=== PATIENT | female | born 1995 | race Two or more races ===

== ENCOUNTER 2017-11-06 10:51 | Emergency (ER) | payer MEDICAID ==
[~2017-11-06] VITALS: Ht 172.7 cm; Wt 65.5 kg
[~2017-11-06 10:51] MED LIST: CITA10TA8 PO
[2017-11-06] MEDS ORDERED: SODIUM CHLORIDE 0.9% 1,000 ML IV ONE (11:37)
[2017-11-06 11:57] LABS: BASOPHILS # (AUTO) 0.01 x10^3/uL (0-0.3); BASOPHILS % (AUTO) 0 % (0-1); EOSINOPHILS % (AUTO) 0 % (1-7); LYMPHOCYTES # (AUTO) 0.72 x10^3/uL (1-6.1); LYMPHOCYTES % (AUTO) 11 % (22-44); MD NO; MEAN CORPUSCULAR HEMOGLOBIN 31.9 pg (27.0-34.8); MEAN CORPUSCULAR VOLUME 93.7 fL (80-100); MEAN PLATELET VOLUME 8.1 fL (7.4-10.4); MONOCYTES # (AUTO) 0.23 x10^3/uL (0-1.4); MONOCYTES % (AUTO) 4 % (2-9); NEUTROPHILS # (AUTO) 5.38 x10^3/uL (1.8-8.0); NEUTROPHILS % (AUTO) 85 % (42-75); PLATELET COUNT 246 x10^3/uL (130-400); RED BLOOD COUNT 4.08 x10^6/uL (3.82-5.3); RED CELL DISTRIBUTION WIDTH 13.1 % (9.6-15.2)
[2017-11-06] MEDS ORDERED: SODIUM CHLORIDE 0.9% 1,000ML IVBOLUS ONE (12:00)
[2017-11-06] MEDS ORDERED: SODIUM CHLORIDE FLUSH 10ML SYR IVF ONE (12:00)
[2017-11-06] MEDS ORDERED: ONDANSETRON 2MG/ML, 2ML IVPush ONE (12:00)
[2017-11-06] MEDS ORDERED: KETOROLAC 30 MG/1 ML IVPush ONE (12:00)
[2017-11-06 12:08] LABS: ALBUMIN 4.7 g/dL (3.4-5.0); ANION GAP 10 mmol/L (5-15); CALCIUM 8.4 mg/dL (8.5-10.1); CHLORIDE 107 mmol/L (98-107)
[2017-11-06] MEDS ORDERED: ONDANSETRON 2MG/ML, 2ML ONE (12:12)
[2017-11-06] MEDS ORDERED: KETOROLAC 30 MG/1 ML ONE ×2 (12:12→14:47)
[2017-11-06 12:14] LABS: ALANINE AMINOTRANSFERASE 17 U/L (12-78); ALKALINE PHOSPHATASE 68 U/L (45-117); BILIRUBIN,TOTAL 0.9 mg/dL (0.2-1.0); CREATININE 0.82 mg/dL (0.55-1.02); TOTAL PROTEIN 7.7 g/dL (6.4-8.2)
[2017-11-06 12:46] LABS: MICROSCOPIC AUTO
[2017-11-06 12:47] LABS: CULTURE INDICATED? NO
[2017-11-06] MEDS ORDERED: MORPHINE SULFATE 4 MG/ML, 1ML ONE (13:06)
[2017-11-06] MEDS ORDERED: PROMETHAZINE 25 MG/ML, 1ML ONE (13:06)
[2017-11-06] MEDS ORDERED: MORPHINE SULFATE 4 MG/ML, 1ML IVPush PRN (13:30)
[2017-11-06] MEDS ORDERED: PROMETHAZINE 25 MG/ML, 1ML IM ONE (13:30)
[2017-11-06 14:26] VITALS: BP 121/70
[2017-11-06] MEDS ORDERED: METHOCARBAMOL 750 MG TABLET ONE (14:47)
== END 2017-11-06 14:41 | disposition home or self-care (01) ==
LOC: ED 13:45
DX: N83.12 Corpus luteum cyst of left ovary (principal)
CPT/HCPCS: 36415; 76830; 80053; 81001; 84703; 85025; 96361; 96372; 96374; 96375; 99285; J1885; J2405; J2550; J7030

== ENCOUNTER 2017-11-07 16:03 | Emergency (ER) | payer MEDICAID ==
[~2017-11-07] VITALS: Ht 170.2 cm; Wt 77.5 kg
[2017-11-07] MEDS ORDERED: FAMOTIDINE 20 MG/2 ML IVP ONE (16:30)
[2017-11-07] MEDS ORDERED: ONDANSETRON 2MG/ML, 2ML IVPush ONE (16:30)
[2017-11-07] MEDS ORDERED: SODIUM CHLORIDE FLUSH 10ML SYR IVF ONE (16:30)
[2017-11-07] MEDS ORDERED: SODIUM CHLORIDE 0.9% 1,000ML IVBOLUS ONE (16:30)
[2017-11-07] MEDS ORDERED: ZIPRASIDONE 20 MG INJ IM ONE ×2 (16:30→16:37)
[2017-11-07] MEDS ORDERED: ONDANSETRON 2MG/ML, 2ML ONE (16:37)
[2017-11-07] MEDS ORDERED: FAMOTIDINE 20 MG/2 ML ONE (16:37)
[2017-11-07] MEDS ORDERED: PROMETHAZINE 25 MG/ML, 1ML ONE (16:41)
[2017-11-07] MEDS ORDERED: PROMETHAZINE 25 MG/ML, 1ML IM ONE (17:00)
[2017-11-07 17:01] LABS: MICROSCOPIC NOT IND
[2017-11-07 17:03] LABS: CULTURE INDICATED? NO
[2017-11-07 17:12] LABS: AMPHETAMINE SCREEN, URINE Negative (Negative); BARBITURATE SCREEN, URINE Negative (Negative); BENZODIAZEPINE SCREEN, URINE Negative (Negative); CANNABINOID SCREEN, URINE Positive (Negative); COCAINE SCREEN, URINE Negative (Negative); METHADONE SCREEN, URINE Negative (Negative); OPIATE SCREEN, URINE Negative (Negative)
[2017-11-07 17:14] LABS: BASOPHILS # (AUTO) 0.03 x10^3/uL (0-0.3); BASOPHILS % (AUTO) 0 % (0-1); EOSINOPHILS % (AUTO) 0 % (1-7); LYMPHOCYTES % (AUTO) 14 % (22-44); MD NO; MEAN CORPUSCULAR HEMOGLOBIN 32.4 pg (27.0-34.8); MEAN CORPUSCULAR HGB CONC 34.3 g/dL (32.4-35.8); MEAN CORPUSCULAR VOLUME 94.5 fL (80-100); MEAN PLATELET VOLUME 8.2 fL (7.4-10.4); MONOCYTES # (AUTO) 0.52 x10^3/uL (0-1.4); MONOCYTES % (AUTO) 8 % (2-9); NEUTROPHILS # (AUTO) 4.95 x10^3/uL (1.8-8.0); NEUTROPHILS % (AUTO) 77 % (42-75); PLATELET COUNT 250 x10^3/uL (130-400); RED BLOOD COUNT 3.94 x10^6/uL (3.82-5.3); RED CELL DISTRIBUTION WIDTH 13.1 % (9.6-15.2)
[2017-11-07 17:25] LABS: ALBUMIN 4.6 g/dL (3.4-5.0); ANION GAP 13 mmol/L (5-15); CALCIUM 7.9 mg/dL (8.5-10.1); CHLORIDE 109 mmol/L (98-107); CREATININE 0.83 mg/dL (0.55-1.02)
[2017-11-07] MEDS ORDERED: LORazepam 2 MG/ML, 1ML ONE (17:36)
[2017-11-07] MEDS ORDERED: LORazepam 2 MG/ML, 1ML IVPush ONE (18:00)
[2017-11-07] MEDS ORDERED: DIAZEPAM 5 MG TABLET ONE (18:50)
[2017-11-07] MEDS ORDERED: DIAZEPAM 5 MG TABLET PO ONE (19:00)
[2017-11-07 19:21] VITALS: BP 143/74
[2017-11-08] MEDS ORDERED: NAPR500T4 PO (09:54)
== END 2017-11-07 18:32 | disposition home or self-care (01) ==
LOC: ED 16:06
DX: G89.29 Other chronic pain (principal); R10.84 Generalized abdominal pain; Z90.49 Acquired absence of other specified parts of digestive tract; F41.1 Generalized anxiety disorder; R06.4 Hyperventilation; F12.929 Cannabis use, unspecified with intoxication, unspecified; G89.18 Other acute postprocedural pain; N83.209 Unspecified ovarian cyst, unspecified side
CPT/HCPCS: 36415; 80048; 80307; 81003; 82040; 85025; 96361; 96372; 96374; 96375; 99284; J2060; J2405; J2550; J7030; S0028

== ENCOUNTER 2017-11-08 09:44 | Emergency (ER) | payer MEDICAID ==
[~2017-11-08] VITALS: Ht 172.7 cm; Wt 74.0 kg
[2017-11-08] MEDS ORDERED: NAPR500T4 PO (09:54)
[2017-11-08] MEDS ORDERED: SODIUM CHLORIDE 0.9% 1,000 ML IV ONE (10:04)
[2017-11-08] MEDS ORDERED: SODIUM CHLORIDE 0.9% 1,000ML IVBOLUS ONE (10:30)
[2017-11-08] MEDS ORDERED: SODIUM CHLORIDE FLUSH 10ML SYR IVF ONE (10:30)
[2017-11-08 10:46] LABS: BASOPHILS # (AUTO) 0.03 x10^3/uL (0-0.3); BASOPHILS % (AUTO) 0 % (0-1); EOSINOPHILS % (AUTO) 0 % (1-7); LYMPHOCYTES # (AUTO) 1.77 x10^3/uL (1-6.1); LYMPHOCYTES % (AUTO) 20 % (22-44); MD NO; MEAN CORPUSCULAR HEMOGLOBIN 32.1 pg (27.0-34.8); MEAN CORPUSCULAR HGB CONC 34.1 g/dL (32.4-35.8); MEAN CORPUSCULAR VOLUME 94.2 fL (80-100); MEAN PLATELET VOLUME 8.2 fL (7.4-10.4); MONOCYTES # (AUTO) 0.61 x10^3/uL (0-1.4); MONOCYTES % (AUTO) 7 % (2-9); NEUTROPHILS # (AUTO) 6.47 x10^3/uL (1.8-8.0); NEUTROPHILS % (AUTO) 73 % (42-75); PLATELET COUNT 239 x10^3/uL (130-400); RED BLOOD COUNT 3.83 x10^6/uL (3.82-5.3); RED CELL DISTRIBUTION WIDTH 13.5 % (9.6-15.2)
[2017-11-08 10:47] LABS: CULTURE INDICATED? YES; MICROSCOPIC INDICATED
[2017-11-08 10:55] LABS: ALBUMIN 4.5 g/dL (3.4-5.0); ANION GAP 8 mmol/L (5-15); CHLORIDE 109 mmol/L (98-107); CREATININE 0.73 mg/dL (0.55-1.02)
[2017-11-08 11:38] VITALS: BP 128/81
[2017-11-08] MEDS ORDERED: OMNIPAQUE 350 MG/ML, 100ML BOTTLE ONE (22:41)
== END 2017-11-08 12:06 | disposition home or self-care (01) ==
LOC: ED 11:20
DX: N94.6 Dysmenorrhea, unspecified (principal); R82.99 Other abnormal findings in urine
CPT/HCPCS: 36415; 76830; 80048; 81001; 82040; 84703; 85025; 87086; 96360; 99285; J7030; Q9967

== ENCOUNTER 2018-01-13 07:31 | Emergency (ER) | payer MEDICAID ==
[~2018-01-13] VITALS: Ht 172.7 cm; Wt 68.0 kg
[~2018-01-13 07:31] MED LIST changes: +NAPR-685 PO
[2018-01-13] MEDS ORDERED: ONDANSETRON ODT 4 MG ONE (07:46)
[2018-01-13] MEDS ORDERED: MORPHINE SULFATE 4 MG/ML, 1ML ONE ×2 (07:52→08:52)
[2018-01-13] MEDS: MORPHINE SULFATE 4 MG/ML, 1ML IVPush PRN ×2 (07:53→08:55)
[2018-01-13] MEDS ORDERED: SODIUM CHLORIDE 0.9% 1,000ML IVBOLUS ONE (08:00)
[2018-01-13] MEDS ORDERED: ONDANSETRON ODT 4 MG PO ONE (08:00)
[2018-01-13] MEDS ORDERED: SODIUM CHLORIDE FLUSH 10ML SYR IVF ONE (08:00)
[2018-01-13 08:05] LABS: BASOPHILS # (AUTO) 0.02 x10^3/uL (0-0.3); BASOPHILS % (AUTO) 0 % (0-1); EOSINOPHILS % (AUTO) 0 % (1-7); LYMPHOCYTES # (AUTO) 0.81 x10^3/uL (1-6.1); LYMPHOCYTES % (AUTO) 11 % (22-44); MD NO; MEAN CORPUSCULAR HEMOGLOBIN 32.1 pg (27.0-34.8); MEAN CORPUSCULAR HGB CONC 33.8 g/dL (32.4-35.8); MEAN CORPUSCULAR VOLUME 94.9 fL (80-100); MEAN PLATELET VOLUME 8.3 fL (7.4-10.4); MONOCYTES % (AUTO) 4 % (2-9); NEUTROPHILS # (AUTO) 6.34 x10^3/uL (1.8-8.0); NEUTROPHILS % (AUTO) 85 % (42-75); PLATELET COUNT 298 x10^3/uL (130-400); RED BLOOD COUNT 4.05 x10^6/uL (3.82-5.3); RED CELL DISTRIBUTION WIDTH 13.3 % (9.6-15.2)
[2018-01-13 08:14] LABS: ALBUMIN 4.6 g/dL (3.4-5.0); ANION GAP 13 mmol/L (5-15); CALCIUM 8.4 mg/dL (8.5-10.1); CHLORIDE 104 mmol/L (98-107); CREATININE 0.83 mg/dL (0.55-1.02)
[2018-01-13] MEDS ORDERED: METOCLOPRAMIDE 5 MG/ML, 2ML ONE (08:47)
[2018-01-13 08:55] LABS: MICROSCOPIC NOT IND
[2018-01-13 08:59] LABS: CULTURE INDICATED? NO
[2018-01-13] MEDS ORDERED: METOCLOPRAMIDE 5 MG/ML, 2ML IVPush ONE (09:00)
[2018-01-13] MEDS ORDERED: PROMETHAZINE 25 MG/ML, 1ML IM ONE (10:00)
[2018-01-13] MEDS ORDERED: PROMETHAZINE 25 MG/ML, 1ML ONE (10:24)
[2018-01-13 10:31] VITALS: BP 135/93
== END 2018-01-13 10:41 | disposition home or self-care (01) ==
LOC: ED 09:53
DX: R10.31 Right lower quadrant pain (principal); G89.29 Other chronic pain; R11.14 Bilious vomiting; R11.0 Nausea; N83.202 Unspecified ovarian cyst, left side; N83.201 Unspecified ovarian cyst, right side
CPT/HCPCS: 36415; 76830; 80048; 81003; 82040; 84703; 85025; 96361; 96372; 96374; 96375; 96376; 99285; J2550; J2765; J7030; Q0162

== ENCOUNTER 2020-08-08 17:01 | Emergency (ER) | payer MEDICAID ==
[2020-08-08] MEDS ORDERED: LORazepam 2 MG/ML, 1ML ONE ×2 (17:22→17:41)
[2020-08-08] MEDS ORDERED: LORazepam 2 MG/ML, 1ML IVPush ONE ×3 (17:30→18:00)
[2020-08-08] MEDS ORDERED: SODIUM CHLORIDE FLUSH 10ML SYR IVF ONE (17:30)
[2020-08-08 17:44] LABS: BASOPHILS % (AUTO) 0 % (0-1); EOSINOPHILS % (AUTO) 0 % (1-7); LYMPHOCYTES % (AUTO) 12 % (22-44); MEAN CORPUSCULAR HEMOGLOBIN 29.6 pg (27.0-34.8); MEAN PLATELET VOLUME 8.1 fL (7.4-10.4); MONOCYTES % (AUTO) 5 % (2-9); NEUTROPHILS % (AUTO) 83 % (42-75); PLATELET COUNT 348 x10^3/uL (130-400); RED BLOOD COUNT 4.47 x10^6/uL (3.82-5.3); RED CELL DISTRIBUTION WIDTH 16.4 % (9.6-15.2)
[2020-08-08 17:55] LABS: ALBUMIN 4.7 g/dL (3.4-5.0); ANION GAP 10 mmol/L (5-15); CALCIUM 9.3 mg/dL (8.5-10.1); CHLORIDE 110 mmol/L (98-107); CREATININE 0.99 mg/dL (0.55-1.02)
[2020-08-08] MEDS ORDERED: HALOPERIDOL 5 MG/ML IVPush ONE (18:00)
[2020-08-08] MEDS ORDERED: HALOPERIDOL 5 MG/ML ONE (18:19)
[2020-08-08 18:23] LABS: MD NO
--- NOTE | 2020-08-08 18:27 | NUR ---
card [address] side rails up for safety.
--- NOTE | 2020-08-08 18:52 | NUR ---
REPORT RECEIVED, PT CARE ASSUMED.
--- NOTE | 2020-08-08 19:23 | NUR ---
EKG DONE WITH 3 PERSON ASSIST. PT PROVIDED WITH WARM BLANKETS. RESTING AT THIS TIME. CALL LIGHT IN REACH.
--- NOTE | 2020-08-08 20:34 | NUR ---
PT OCCASIONALLY TOSSING AND CRYING OUT. REMAINS DISORIENTED, BUT NO S/S OF PHYSICAL ISSUES. VITALS REMAIN STABLE. COVERED WITH WARM BLANKETS, LIGHTS DIMMED. PT CALM, RESTING. SITTER IN LINE OF SIGHT. ERP UPDATED.
--- NOTE | 2020-08-08 22:45 | NUR ---
PT HAD SPONTANEOUS EMESIS. LINENS CHANGED, FLOOR CLEAN. NEW MONITORING EQUIPMENT APPLIED NECESSARY. PT RESPONSIVE TO QUESTIONS BUT CONTINUES TO BE DISORIENTED. REFERS TO THIS NURSE "JIM". ERP NOTIFIED OF PT EMESIS. SITTER CONTINUES IN LINE OF SIGHT.
[2020-08-08] MEDS ORDERED: ONDANSETRON 2MG/ML, 2ML ONE (22:55)
[2020-08-08] MEDS ORDERED: ONDANSETRON 2MG/ML, 2ML IVPush ONE (23:00)
--- NOTE | 2020-08-08 23:06 | NUR ---
PT HAD ANOTHER SMALL GREEN EMESIS. PT CLEANED AGAIN. MEDICATED WITH ZOFRAN PER NOV. PT RESTING AT THIS TIME. SITTER CONTINUES IN LINE OF SIGHT.
[2020-08-09] MEDS ORDERED: ONDANSETRON 2MG/ML, 2ML ONE (01:41)
--- NOTE | 2020-08-09 01:54 | NUR ---
PT UP TO RESTROOM, URINE SAMPLE COLLECTED. EMESIS x 2. ERP NOTIFIED, NEW ORDERS RECEIVED AND ADMINISTRATED. PT RESTING AT THIS TIME.
[2020-08-09 01:59] LABS: AMPHETAMINE SCREEN, URINE Negative (Negative); BARBITURATE SCREEN, URINE Negative (Negative); BENZODIAZEPINE SCREEN, URINE Positive (Negative); CANNABINOID SCREEN, URINE Positive (Negative); COCAINE SCREEN, URINE Negative (Negative); METHADONE SCREEN, URINE Negative (Negative); OPIATE SCREEN, URINE Negative (Negative)
[2020-08-09] MEDS ORDERED: ONDANSETRON 2MG/ML, 2ML IVPush ONE (02:00)
--- NOTE | 2020-08-09 02:33 | NUR ---
PT AWAKE AND ORIENTED, REQUESTING PHYSICIAN. ERP NOTIFIED. DENIES ANY FURTHER NEEDS OR CONCERNS AT THIS TIME. SITTER CONTINUES IN DIRECT LINE OF SIGHT.
[2020-08-09] MEDS ORDERED: LORazepam 2 MG/ML, 1ML ONE (03:18)
--- NOTE | 2020-08-09 03:28 | NUR ---
PT EDUCATED ON PROCESS, ALL QUESTIONS ADDRESSED. MEDICATED PER ORDERS. TELEPSYCH MONITOR AT BEDSIDE. DENIES ANY FURTHER NEEDS.
[2020-08-09] MEDS ORDERED: LORazepam 1MG TABLET PO ONE (03:30)
[2020-08-09] MEDS ORDERED: LORazepam 2 MG/ML, 1ML IVPush ONE (03:30)
--- NOTE | 2020-08-09 04:31 | NUR ---
PT NOW ON L2K, SITTER IN LINE OF SIGHT. PT RESTING, NAD NOTED.
[2020-08-09] MEDS ORDERED: PROMETHAZINE 25 MG/ML, 1ML ONE (04:41)
--- NOTE | 2020-08-09 04:52 | NUR ---
PT UP TO BEDSIDE COMMODE. RETURNED TO BED WITHOUT ISSUE. MEDICATED PER MAR. PROVIDED WITH WARM BLANKETS. SITTER IN DIRECT LINE OF SIGHT.
--- NOTE | 2020-08-09 04:54 | NUR ---
[facility] denied this referral, not appropriate insurance coverage.
[2020-08-09] MEDS ORDERED: PROMETHAZINE 25 MG/ML, 1ML IM ONE (05:00)
--- NOTE | 2020-08-09 05:00 | NUR ---
REJI RN: [facility]
--- NOTE | 2020-08-09 05:30 | NUR ---
MT: [facility] ACCEPTED PT FOR [address]. ACCEPTING DR WILL BE DR ORO.
--- NOTE | 2020-08-09 05:36 | NUR ---
REPORT CALLED TO [facility]. RECEIVING RN STATES THAT ANDREA WILL BE HERE @ 0797 FOR PICKUP. PT RESTING IN BED WITHOUT ISSUE. SITTER CONTINUES IN DIRECT LINE OF SIGHT.
--- NOTE | 2020-08-09 05:44 | NUR ---
PT SLEEPING SOUNDLY IN BED. VITALS WNL ON MONITOR. NAD NOTED, RESPIRATIONS EVEN AND UNLABORED. SITTER CONTINUES IN DIRECT LINE OF SIGHT.
--- NOTE | 2020-08-09 06:58 | NUR ---
BEDSIDE REPORT RECEIVED FROM CONNOR CARSON
[2020-08-09 07:03] VITALS: BP 124/87
--- NOTE | 2020-08-09 07:11 | NUR ---
Pt sitting upright on gurney with eyes closed. NAD, VSS. Pt denies any needs at this time. Sitter within view. Awaiting [facility] for transfer to [facility].
--- NOTE | 2020-08-09 07:45 | NUR ---
PT TO [facility] VIA [facility] WITH ALL BELONGINGS (X1 BAG AND 2 CELL PHONES).
== END 2020-08-09 08:08 ==
LOC: ED 08-09 00:47
DX: F41.1 Generalized anxiety disorder (principal); R06.4 Hyperventilation; F17.210 Nicotine dependence, cigarettes, uncomplicated; Z90.89 Acquired absence of other organs
CPT/HCPCS: 36415; 80048; 80307; 82040; 84703; 85025; 93005; 96372; 96374; 96375; 96376; 99285; 99406; J1630; J2060; J2405; J2550

== ENCOUNTER 2020-08-12 00:01 | Emergency (ER) | payer MEDICAID ==
[~2020-08-12] VITALS: Ht 170.2 cm; Wt 62.0 kg
[2020-08-12] MEDS ORDERED: LORazepam 2 MG/ML, 1ML IVPush PRN (00:30)
[2020-08-12] MEDS ORDERED: SODIUM CHLORIDE FLUSH 10ML SYR IVF ONE (00:30)
[2020-08-12] MEDS ORDERED: ZIPRASIDONE 20 MG INJ IM ONE ×2 (00:34→01:00)
--- NOTE | 2020-08-12 00:42 | NUR ---
PT MEDICATED FOR ANXIETY, AWARE OF NEED FOR URINE, [facility] AT BEDSIDE
[2020-08-12 00:49] LABS: BASOPHILS % (AUTO) 1 % (0-1); EOSINOPHILS % (AUTO) 0 % (1-7); LYMPHOCYTES % (AUTO) 22 % (22-44); MEAN CORPUSCULAR HEMOGLOBIN 30.3 pg (27.0-34.8); MEAN CORPUSCULAR HGB CONC 33.6 g/dL (32.4-35.8); MEAN PLATELET VOLUME 8.3 fL (7.4-10.4); MONOCYTES % (AUTO) 10 % (2-9); NEUTROPHILS % (AUTO) 67 % (42-75); PLATELET COUNT 294 x10^3/uL (130-400); RED BLOOD COUNT 4.71 x10^6/uL (3.82-5.3); RED CELL DISTRIBUTION WIDTH 16.4 % (9.6-15.2)
[2020-08-12 00:55] LABS: ALANINE AMINOTRANSFERASE 26 U/L (12-78); ALBUMIN 4.7 g/dL (3.4-5.0); ANION GAP 9 mmol/L (5-15); CALCIUM 8.9 mg/dL (8.5-10.1); CHLORIDE 103 mmol/L (98-107); CREATININE 0.91 mg/dL (0.55-1.02)
[2020-08-12 00:58] LABS: MD NO
[2020-08-12 01:00] LABS: ALKALINE PHOSPHATASE 112 U/L (45-117); BILIRUBIN,TOTAL 1.1 mg/dL (0.2-1.0); TOTAL PROTEIN 7.9 g/dL (6.4-8.2)
--- NOTE | 2020-08-12 01:19 | NUR ---
PT CALM AND COOPERATIVE AFTER MARLYS, [id number]&[id number], VSS, STATES THAT SHE WANTS TO REFUSE THE TRANS VAGINAL ULTRASOUND
[2020-08-12 02:30] LABS: MICROSCOPIC AUTO
[2020-08-12 03:30] VITALS: BP 151/111
== END 2020-08-12 14:01 | disposition home or self-care (01) ==
LOC: ED 01:15
DX: N30.00 Acute cystitis without hematuria (principal); R07.89 Other chest pain; R10.31 Right lower quadrant pain
CPT/HCPCS: 36415; 71045; 80053; 81001; 83690; 84703; 85025; 87086; 96372; 99284; J3486